=== PATIENT | female | born 1950 | race Caucasian/White ===

== ENCOUNTER 2017-09-25 13:30 | Inpatient (IN) | payer OTHER ==
[~2017-09-25] VITALS: Ht 160 cm; Wt 68.5 kg
[2017-09-25] MEDS ORDERED: PAXIL20 MG PO (14:33)
[2017-09-25] MEDS ORDERED: PROTONIX40 MG PO (14:33)
[2017-09-25] MEDS ORDERED: CLONAZEPAM0.5 MG PO (14:33)
[2017-09-25] MEDS ORDERED: DITROPAN XL5 MG PO (14:34)
[2017-09-25] MEDS ORDERED: NEURONTIN800 MG PO (14:34)
[2017-09-25] MEDS ORDERED: ZYRTEC10 M3 PO (14:35)
[2017-09-25] MEDS ORDERED: [UNRECOGNIZED DRUG - OTHER] PO (14:35)
[2017-09-25] MEDS ORDERED: [UNRECOGNIZED DRUG - OTHER] PO (14:36)
[2017-09-25] MEDS ORDERED: ZETIA10 MG PO (14:36)
[2017-09-25] MEDS ORDERED: LIPITOR20 MG PO (14:36)
[2017-10-04] MEDS ORDERED: COLACE100 MG PO (09:53)
[2017-10-04] MEDS ORDERED: CLONAZEPAM1 MG PO (09:53)
[2017-10-04] MEDS ORDERED: PERCOCET 5-3251 EACH PO (09:53)
== END 2017-10-05 14:04 | disposition home or self-care (01) | DRG 472 ==
LOC: ADM 13:30 → O/R 13:30 → EDSTATUS 13:30 → PED 10-04 04:35 → O/R 10-04 04:35 → PED 10-04 10:23 → O/R 10-04 13:30 → PED 10-05 14:04
PROVIDERS: Orthopaedic Surgery Orthopaedic Surgery of the Spine
PROC: 0RG20A0 Fusion of 2 or more Cervical Vertebral Joints with Interbody Fusion Device, Anterior Approach, Anterior Column, Open Approach (ICD-10-PCS; 2017-10-04)
PROC: 0RT30ZZ Resection of Cervical Vertebral Disc, Open Approach (ICD-10-PCS; principal; 2017-10-04 07:00)
DX: M47.12 Other spondylosis with myelopathy, cervical region (principal); M50.023 Cervical disc disorder at C6-C7 level with myelopathy; I10 Essential (primary) hypertension